=== PATIENT | female | born 1950 | race Caucasian/White ===

== ENCOUNTER → 2016-10-23 | Outpatient (CLI) | payer MEDICARE, OTHER | DX: R51 Headache (principal); H53.9 Unspecified visual disturbance; Z88.1 Allergy status to other antibiotic agents | CPT/HCPCS: 70551 ==

== ENCOUNTER 2022-04-13 11:10 | Emergency (ER) | payer MEDICARE, OTHER ==
[~2022-04-13 11:10] MED LIST: ASPIRIN81 MG PO; CARDIZEM CD240 MG PO; ETODOLAC400 MG PO; LINZESS145 MCG PO; LOPRESSOR 50 MG50 MG PO; MACROBID 100 M100 MG PO; NITROFURANTOIN100 M1 PO; PROTONIX40 MG PO; TOPAMAX 100 MG100 MG PO; ZESTRIL/PRINIVI10 MG PO; ZOFRAN4 MG PO
[2022-04-13 11:57] LABS: HEMOGLOBIN 13.2 gm/dl (12.3-15.3); RED BLOOD COUNT 4.77 M/UL (4.00-5.10)
[2022-04-13] MEDS ORDERED: CEPHALEXIN500 M1 PO (15:32)
[2022-04-13] MEDS ORDERED: DIFLUCAN150 MG PO (15:32)
== END 2022-04-13 15:47 | disposition home or self-care (01) ==
LOC: ER1 11:10
PROVIDERS: Physician Assistant
DX: N30.00 Acute cystitis without hematuria (principal); I51.9 Heart disease, unspecified; I48.91 Unspecified atrial fibrillation
CPT/HCPCS: 80053; 81001; 83690; 85025; 87086; 96360; 96361; 99284